=== PATIENT | female | born 1995 | race Caucasian/White ===

== ENCOUNTER 2020-11-03 18:57 | Emergency (ER) | payer BC ==
[2020-11-03] MEDS ORDERED: Acetaminophen/Codeine 30-300mg Tablet ONE (19:25)
[2020-11-03] MEDS ORDERED: Ibuprofen 200 MG TAB ONE (19:25)
== END 2020-11-03 19:35 | disposition home or self-care (01) ==
LOC: MADERS 18:57
DX: S93.491A Sprain of other ligament of right ankle, initial encounter (principal); X50.1XXA Overexertion from prolonged static or awkward postures, initial encounter